=== PATIENT | female | born 1970 | race American Indian/Alaskan Native ===

== ENCOUNTER 2016-11-24 11:33 | Emergency (ER) | payer OTHER ==
[2016-11-24 11:55] VITALS: BP 128/82
--- NOTE | 2016-11-24 18:49 | Emergency Department Report ---
Entered by ALTON RANKIN, acting as scribe for EDWIN WINCHESTER NP. ED General Adult HPI - General Chief complaint: Extremity Injury, Lower Stated complaint: RT LEG PAIN/HIGH BLOOD SUGAR Time Seen by Provider: 11/24/16 13:42 Source: patient Mode of arrival: Ambulatory Limitations: No Limitations - History of Present Illness Initial comments: This is a 46 y/o female, nontoxic, well nourished in appearance, no acute signs of distress with a PMHx of IDDM presents with c/o right arm and toes tingling sensation that began over 6 months ago. Aggravated with nothing and alleviated with nothing. Patient states she hasn't been compliant with Metformin 500 mg medications for 10 months. She notes her blood glucose was elevated to 160. Patient secondary complaint consists of right knee pain that began 3 weeks ago. Patient states she was playing around and someone subsequently fell on her right knee. Rates pain a 9/10 in sverity, which she describes as sharp in quality. Patient stated she wants a refill for metformin in this visit. Patient denies f/u with her PCP due to no insurance but patient stated has insurance currently and will f/u after referred. Patient reports associated left ankle swelling, but he denies fever, chills, chest pain, SOB, BLANTON or dizziness, numbness, and tingling. Patient refused to receive an X-ray of right knee. NKDA. LEIVA Complaint: Medication refill and tingling in extremities Onset/Timin -: week(s) (right knee), month(s) (6 months for right arm and toes tingling/ numbness) Location: upper extremity (right arm), lower extremity (toes) Radiation: non-radiation Severity scale (0 -10): 9 (right knee) Quality: sharp (right knee) Consistency: constant Improves with: none Worsens with: none Associated Symptoms: denies other symptoms, other (tingling of upper and lower extremities and right knee pain). denies: confusion, chest pain, cough, diaphoresis, fever/chills, headaches, malaise, nausea/vomiting, rash, seizure, shortness of breath, syncope, weakness Treatments Prior to Arrival: none - Related Data Previous Rx's Medication Instructions Recorded Last Taken Type Acetaminophen [Tylenol] 500 mg PO Q6HR #14 tablet 03/05/16 Unknown Rx metFORMIN [Glucophage] 500 mg PO BID #60 tablet 03/05/16 Unknown Rx metFORMIN [Glucophage] 500 mg PO BID #20 tablet 11/24/16 Unknown Rx Allergies Allergy/AdvReac Type Severity Reaction Status Date / Time No Known Allergies Allergy Verified 03/05/16 12:00 ED Review of Systems Comment: All other systems reviewed and negative Constitutional: denies: chills, fever Eyes: denies: eye pain, eye discharge, vision change ENT: denies: ear pain, throat pain Respiratory: denies: cough, orthopnea, shortness of breath, SOB with exertion, SOB at rest, stridor, wheezing Cardiovascular: denies: chest pain, palpitations, dyspnea on exertion, orthopnea , edema, syncope Endocrine: no symptoms reported Gastrointestinal: denies: abdominal pain, nausea, vomiting, diarrhea Musculoskeletal: myalgia (right knee pain). denies: back pain, joint swelling, arthralgia Skin: denies: rash, lesions Neurological: paresthesias (toes and right arm). denies: headache, weakness, numbness, confusion, abnormal gait, vertigo ED Past Medical Hx - Past Medical History Hx Diabetes: Yes - Surgical History Additional Surgical History: x 2 - Social History Smoking Status: Current Every Day Smoker Substance Use Type: Alcohol - Medications Home Medications: Home Medications Medication Instructions Recorded Confirmed Last Taken Type Acetaminophen [Tylenol] 500 mg PO Q6HR #14 tablet 03/05/16 Unknown Rx metFORMIN [Glucophage] 500 mg PO BID #60 tablet 03/05/16 Unknown Rx metFORMIN [Glucophage] 500 mg PO BID #20 tablet 11/24/16 Unknown Rx ED Physical Exam - General Limitations: No Limitations General appearance: alert, in no apparent distress - Head Head exam: Present: atraumatic, normocephalic - Eye Eye exam: Present: normal appearance, PERRL, EOMI Pupils: Present: normal accommodation - ENT ENT exam: Present: normal exam, normal orophraynx, mucous membranes moist, TM's normal bilaterally, normal external ear exam - Neck Neck exam: Present: normal inspection, full ROM. Absent: tenderness, meningismus, lymphadenopathy - Respiratory Respiratory exam: Present: normal lung sounds bilaterally. Absent: respiratory distress, wheezes, rales, rhonchi, stridor - Cardiovascular Cardiovascular Exam: Present: regular rate, normal rhythm, normal heart sounds. Absent: bradycardia, tachycardia, irregular rhythm, systolic murmur, diastolic murmur, rubs, gallop - GI/Abdominal GI/Abdominal exam: Present: soft, normal bowel sounds - Rectal Rectal exam: Present: deferred - Extremities Exam Extremities exam: Present: normal inspection, full ROM, normal capillary refill. Absent: tenderness, pedal edema, joint swelling, calf tenderness - Expanded Lower Extremity Exam Right Hip exam: Present: full ROM, tenderness. Absent: swelling, abrasion Upper Leg exam: Present: normal inspection, full ROM. Absent: tenderness, swelling, abrasion, laceration, ecchymosis, deformity, crepidus, dislocation, erythema Knee exam: Present: normal inspection, full ROM, full knee extension. Absent: tenderness, swelling, abrasion, laceration, ecchymosis, deformity, crepidus, dislocation, erythema, effusion, pain w/ pronation/supination, posterior draw sign, pain/laxity with valgus, pain/laxity with varus Lower Leg exam: Present: normal inspection, full ROM. Absent: tenderness, swelling, abrasion, laceration, ecchymosis, deformity, crepidus, dislocation, erythema, palpable cord, Andrea's sign Ankle exam: Present: normal inspection, full ROM. Absent: tenderness, swelling , abrasion, laceration, ecchymosis, deformity, crepidus, dislocation, erythema, anterior draw sign Foot/Toe exam: Present: normal inspection, full ROM. Absent: tenderness, swelling, abrasion, laceration, ecchymosis Neuro vascular tendon exam: Present: no vascular compromise Gait: Positive: observed and normal - Back Exam Back exam: Present: normal inspection, full ROM. Absent: tenderness, CVA tenderness (R), CVA tenderness (L), muscle spasm, paraspinal tenderness, vertebral tenderness, rash noted - Neurological Exam Neurological exam: Present: alert, oriented X3, CN II-XII intact, normal gait, reflexes normal - Psychiatric Psychiatric exam: Present: normal affect, normal mood. Absent: depressed, agitated - Skin Skin exam: Present: warm, dry, intact, normal color. Absent: rash ED Course Vital Signs 11/24/16 11:47 Temperature 98.8 F Pulse Rate 83 Respiratory 20 Rate Blood Pressure 128/82 O2 Sat by Pulse 100 Oximetry - Reevaluation(s) Reevaluation #1: 11/24/16 13:58 Patient is sitting with no signs of distress noted. Reevaluation #2: 11/24/16 13:59 Patient refused further eval of knee pain. Patient stated she does not want x- ray and refused. I instructed patient of my concerns and the importance of a knee x-ray but patient still refused. Stated she only wants a refill of metformin. ED Medical Decision Making - Medical Decision Making Ed course: This is a 46-year-old female that presents peripheral neuropathy and medication refill 1- Patient refused further eval of knee pain. Patient stated she does not want x -ray and refused. I instructed patient of my concerns and the importance of a knee x-ray but patient still refused. Stated she only wants a refill of metformin. 2- patient received metformin 500 mg by mouth twice a day and was instructed to follow up with a primary care doctor in 24 hours to evaluate glucose levels. 3- at time time of discharge, the patient does not seem toxic or ill in appearance. No acute signs of distress noted. Patient agrees to discharge treatment plan of care. No further questions noted by the patient. 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 Prior to obtaining metformin please check your glucose levels. Prescriptions: metFORMIN [Glucophage] 500 mg PO BID #20 tablet Referrals: PAYTON AYALA MD [Primary Care Provider] - 3-5 Days AKILAH MARKS JR, MD [Staff Physician] - 3-5 Days [facility] [Outside] - 3-5 Days [facility] [Outside] - 3-5 Days Forms: Work/School Release Form(ED) This documentation as recorded by the scribMASSIEL fleming JASMINE,accurately reflects the service I personally performed and the decisions made by me,EDWIN WINCHESTER, ZOFIA.
== END 2016-11-24 14:12 | disposition home or self-care (01) ==
LOC: ED 11:33
DX: E13.21 Other specified diabetes mellitus with diabetic nephropathy (principal); G62.9 Polyneuropathy, unspecified; F17.200 Nicotine dependence, unspecified, uncomplicated
CPT/HCPCS: 82962; 99282

== ENCOUNTER 2017-05-01 10:26 | Emergency (ER) | payer OTHER ==
[2017-05-01 11:39] VITALS: BP 152/97
[2017-05-01] MEDS ORDERED: BOOSTRIX IM ONE (14:00)
--- NOTE | 2017-05-01 14:17 | Emergency Department Report ---
HPI - General Chief Complaint: Puncture Wound Time Seen by Provider: 05/01/17 13:19 - HPI HPI: She is a 47-year-old female with a history of diabetes controlled with metformin presents to ED stating that she stepped on a scissors about 2 months ago and never got it looked at. Patient states she wanted to come in and have it looked at today plus she ran out of her metformin for the past 3 months and wonders if she can get her medication refilled. Patient states she does not have a primary care once a referral. She denies any fever/chills/nausea/vomiting this abdominal pain/chest pain/ shortness of breath/dizziness or any other problems ED Past Medical Hx - Past Medical History Hx Diabetes: Yes - Surgical History Additional Surgical History: x 2 - Social History Smoking Status: Current Some Day Smoker Substance Use Type: Alcohol - Medications Home Medications: Home Medications Medication Instructions Recorded Confirmed Last Taken Type Acetaminophen [Tylenol] 500 mg PO Q6HR #14 tablet 03/05/16 Unknown Rx metFORMIN [Glucophage] 500 mg PO BID #60 tablet 03/05/16 Unknown Rx Ibuprofen [Motrin] 600 mg PO Q8H PRN #30 tablet 05/01/17 Unknown Rx metFORMIN [Glucophage] 500 mg PO BID #60 tablet 05/01/17 Unknown Rx ED Review of Systems ROS: Stated complaint: LEFT LEG PAIN Other details as noted in HPI Constitutional: denies: chills, fever Eyes: denies: eye pain, eye discharge, vision change ENT: denies: ear pain, throat pain Respiratory: denies: cough, shortness of breath, wheezing Cardiovascular: denies: chest pain, palpitations Endocrine: no symptoms reported Gastrointestinal: denies: abdominal pain, nausea, diarrhea Genitourinary: denies: urgency, dysuria, discharge Musculoskeletal: denies: back pain, joint swelling, arthralgia Skin: denies: rash, lesions Neurological: denies: headache, weakness, paresthesias Psychiatric: denies: anxiety, depression Hematological/Lymphatic: denies: easy bleeding, easy bruising Physical Exam - Physical Exam Vital Signs: Vital Signs 05/01/17 11:32 Temperature 98 F Pulse Rate 81 Respiratory 18 Rate Blood Pressure 152/97 O2 Sat by Pulse 100 Oximetry Physical Exam: GENERAL: Alert and oriented x3, no apparent distress, Normal Gait, atraumatic. HEAD: Head is normocephalic and a-traumatic. LUNGS: Symetrical with respiration, No wheezing, no rales or crackles, CTAB. HEART: S1, S2 present, regular rate and rhythm without murmur, no rubs, no gallops. Non tender to palpation EXTREMITIES/MUSCULOSKELETAL: No cyanosis, clubbing, rash, lesions or edema. Full ROM bilaterally. UE/LE Pulses 2+ bilaterally. No active puncture wound seen on foot bilaterally. Nontender to palpation bilaterally. NEUROLOGIC: The patient is cooperative with no focal neurologic deficits. SKIN: Warm and dry, No lesions, No ulceration or induration present. ED Course Vital Signs 05/01/17 11:32 Temperature 98 F Pulse Rate 81 Respiratory 18 Rate Blood Pressure 152/97 O2 Sat by Pulse 100 Oximetry ED Medical Decision Making - Medical Decision Making 47-year-old female presents healed old puncture wound and medication refill ED course: Patient received a TD booster ED I discussed the patient I'll give her refill on her metformin and his she needs to follow up with the primary care if physician as referred. Vital signs are normal patient is in no acute respiratory distress. She states she understands instructions and will follow-up as discussed. Critical care attestation.: If time is entered above; I have spent that time in minutes in the direct care of this critically ill patient, excluding procedure time. ED Disposition Clinical Impression: Medication refill Puncture wound of foot excluding toes without complication Qualifiers: Encounter type: initial encounter Laterality: right Qualified Code(s): S91.331A - Puncture wound without foreign body, right foot, initial encounter Disposition: TO HOME OR SELFCARE Is pt being admited?: No Does the pt Need Aspirin: No Condition: Stable Instructions: Puncture Wound (ED) Additional Instructions: Make sure to follow up with the primary care physician as discussed. Take all your medications as you've been prescribed. If you have any worsening symptoms or develop new symptoms please return to ED immediately. Prescriptions: Ibuprofen [Motrin] 600 mg PO Q8H PRN #30 tablet PRN Reason: Pain metFORMIN [Glucophage] 500 mg PO BID #60 tablet Referrals: PRIMARY CARE, [Primary Care Provider] - 3-5 Days [facility] [Outside] - 3-5 Days [facility] [Outside] - 3-5 Days [facility] [Outside] - 3-5 Days [facility] [Outside] - 3-5 Days RAMESH HUSAIN MD [Referring] - 3-5 Days Forms: Accompanied Note, Work/School Release Form(ED) Time of Disposition: 14:42
== END 2017-05-01 15:03 | disposition home or self-care (01) ==
LOC: ED 10:26
DX: S91.331A Puncture wound without foreign body, right foot, initial encounter (principal); E11.9 Type 2 diabetes mellitus without complications; F17.200 Nicotine dependence, unspecified, uncomplicated; W22.8XXA Striking against or struck by other objects, initial encounter; Y93.89 Activity, other specified; Y92.89 Other specified places as the place of occurrence of the external cause; Y99.8 Other external cause status
CPT/HCPCS: 90471; 90715; 99282

== ENCOUNTER 2017-10-01 14:42 | Emergency (ER) | payer SELFPAY ==
[2017-10-01 15:27] VITALS: BP 144/83
--- NOTE | 2017-10-01 18:05 | Emergency Department Report ---
ED General Adult HPI - General Chief complaint: Medical Clearance Stated complaint: PAIN IN RIGHT SHOULDER/BLOOD PRESSURE Time Seen by Provider: 10/01/17 17:00 Source: patient Mode of arrival: Ambulatory Limitations: No Limitations - History of Present Illness Initial comments: Patient is a 47-year-old female who is presenting with heavily but blood sugar. Patient states she's been off of her diabetic medications for approximately 2 months. Patient states whenever she eats her blood sugar rises into the to 300 range. Patient states she has not eaten today for fear that her blood sugar is rising. Patient also states she's had some discomfort in the right upper extremity that she states her pain is 8 out of 10 in severity. Patient states that she does not have a primary care physician at this time despite having insurance. Patient also has not been on any blood pressure medicines either. Patient blood pressure was 150 80 range before arrival. Patient denies any nausea vomiting diarrhea or chest pain shortness of breath fevers chills cough or dysuria at this time. - Related Data Previous Rx's Medication Instructions Recorded Last Taken Type Acetaminophen [Tylenol] 500 mg PO Q6HR #14 tablet 03/05/16 Unknown Rx metFORMIN [Glucophage] 500 mg PO BID #60 tablet 03/05/16 Unknown Rx Amlodipine Besylate [Norvasc] 5 mg PO DAILY #30 tablet 10/01/17 Unknown Rx Ibuprofen [Motrin 600 MG tab] 600 mg PO Q8H PRN #30 tablet 10/01/17 Unknown Rx metFORMIN [Glucophage] 500 mg PO BID #60 tablet 10/01/17 Unknown Rx Allergies Allergy/AdvReac Type Severity Reaction Status Date / Time No Known Allergies Allergy Verified 05/01/17 10:50 ED Review of Systems ROS: Stated complaint: PAIN IN RIGHT SHOULDER/BLOOD PRESSURE Other details as noted in HPI Comment: All other systems reviewed and negative ED Past Medical Hx - Past Medical History Previous Medical History?: Yes Hx Diabetes: Yes - Surgical History Past Surgical History?: Yes Additional Surgical History: x 2 - Social History Smoking Status: Current Every Day Smoker Substance Use Type: Alcohol, Prescribed - Medications Home Medications: Home Medications Medication Instructions Recorded Confirmed Last Taken Type Acetaminophen [Tylenol] 500 mg PO Q6HR #14 tablet 03/05/16 Unknown Rx metFORMIN [Glucophage] 500 mg PO BID #60 tablet 03/05/16 Unknown Rx Amlodipine Besylate [Norvasc] 5 mg PO DAILY #30 tablet 10/01/17 Unknown Rx Ibuprofen [Motrin 600 MG tab] 600 mg PO Q8H PRN #30 tablet 10/01/17 Unknown Rx metFORMIN [Glucophage] 500 mg PO BID #60 tablet 10/01/17 Unknown Rx ED Physical Exam - General Limitations: No Limitations General appearance: alert, in no apparent distress - Head Head exam: Present: atraumatic, normocephalic - Eye Eye exam: Present: normal appearance - ENT ENT exam: Present: mucous membranes moist - Neck Neck exam: Present: normal inspection - Respiratory Respiratory exam: Present: normal lung sounds bilaterally. Absent: respiratory distress - Cardiovascular Cardiovascular Exam: Present: regular rate, normal rhythm. Absent: systolic murmur, diastolic murmur, rubs, gallop - GI/Abdominal GI/Abdominal exam: Present: soft, normal bowel sounds - Extremities Exam Extremities exam: Present: normal inspection - Back Exam Back exam: Present: normal inspection - Neurological Exam Neurological exam: Present: alert, oriented X3 - Psychiatric Psychiatric exam: Present: normal affect, normal mood - Skin Skin exam: Present: warm, dry, intact, normal color. Absent: rash ED Course Vital Signs 10/01/17 15:23 Temperature 98.7 F Pulse Rate 79 Respiratory 19 Rate Blood Pressure 144/83 O2 Sat by Pulse 99 Oximetry ED Medical Decision Making - Lab Data Lab Results 10/01/17 Range/Units 15:28 POC Glucose 152 H (70-105) - Medical Decision Making Be referred to primary care and will be discharged home with refills of her medications. Critical care attestation.: If time is entered above; I have spent that time in minutes in the direct care of this critically ill patient, excluding procedure time. ED Disposition Clinical Impression: Non compliance with medical treatment Disposition: DC-01 TO HOME OR SELFCARE Is pt being admited?: No Does the pt Need Aspirin: No Condition: Stable Instructions: Diabetic Hyperglycemia (ED) Prescriptions: Amlodipine Besylate [Norvasc] 5 mg PO DAILY #30 tablet Ibuprofen [Motrin 600 MG tab] 600 mg PO Q8H PRN #30 tablet PRN Reason: Pain metFORMIN [Glucophage] 500 mg PO BID #60 tablet Referrals: NOEL NAVA MD [Staff Physician] - 3-5 Days
== END 2017-10-01 18:20 | disposition home or self-care (01) ==
LOC: ED 14:42
DX: M25.511 Pain in right shoulder (principal); I10 Essential (primary) hypertension; F17.200 Nicotine dependence, unspecified, uncomplicated; E11.9 Type 2 diabetes mellitus without complications; Z79.899 Other long term (current) drug therapy
CPT/HCPCS: 82962; 99282

== ENCOUNTER 2018-12-05 16:38 | Emergency (ER) | payer SELFPAY ==
--- NOTE | 2018-12-05 16:58 | Emergency Department Report ---
ED General Adult HPI - General Chief complaint: Extremity Problem,Nontraumatic Stated complaint: DIABETIC NO MEDS Time Seen by Provider: 12/05/18 16:50 Source: patient Mode of arrival: Ambulatory Limitations: No Limitations - History of Present Illness Initial comments: Patient is a 48-year-old female up since emergency room for complaints of elevated blood sugar and noncompliance with diabetes medications and burning in her feet and discoloration to her great toenails. Patient states the discoloration started about 3 months ago. Patient states that TURP diabetes medications for 6 months or more. Patient states the burning her feet started about 2 months ago. Patient states this time she is not having any but is intermittent and patient is not sure what to do or take for these symptoms. Patient states she has an appointment in a few weeks with diabetes doctor. Patient denies chest pain or shortness breath. Patient denies dizziness. De nies blurred vision. Patient denies nausea vomiting. -: Sudden Severity scale (0 -10): 0 Quality: burning Consistency: intermittent, now resolved Improves with: rest Worsens with: movement Associated Symptoms: denies: confusion, chest pain, cough, diaphoresis, fever/chills, headaches, loss of appetite, malaise, nausea/vomiting, rash, seizure, shortness of breath, syncope, weakness Treatments Prior to Arrival: none - Related Data Previous Rx's Medication Instructions Recorded Last Taken Type Acetaminophen [Tylenol] 500 mg PO Q6HR #14 tablet 03/05/16 Unknown Rx metFORMIN [Glucophage] 500 mg PO BID #60 tablet 03/05/16 Unknown Rx Amlodipine Besylate [Norvasc] 5 mg PO DAILY #30 tablet 10/01/17 Unknown Rx Ibuprofen [Motrin 600 MG tab] 600 mg PO Q8H PRN #30 tablet 10/01/17 Unknown Rx metFORMIN [Glucophage] 500 mg PO BID 15 Days #30 tablet 12/05/18 Unknown Rx Allergies Allergy/AdvReac Type Severity Reaction Status Date / Time No Known Allergies Allergy Verified 05/01/17 10:50 ED Review of Systems ROS: Stated complaint: DIABETIC NO MEDS Other details as noted in HPI Constitutional: denies: chills, fever Eyes: denies: eye pain, eye discharge, vision change ENT: denies: ear pain, throat pain Respiratory: denies: cough, shortness of breath, wheezing Cardiovascular: denies: chest pain, palpitations Endocrine: no symptoms reported Gastrointestinal: denies: abdominal pain, nausea, diarrhea Genitourinary: denies: urgency, dysuria, discharge Musculoskeletal: denies: back pain, joint swelling, arthralgia Skin: denies: rash, lesions Neurological: denies: headache, weakness, paresthesias Psychiatric: denies: anxiety, depression Hematological/Lymphatic: denies: easy bleeding, easy bruising ED Past Medical Hx - Past Medical History Previous Medical History?: Yes Hx Hypertension: Yes Hx Diabetes: Yes - Surgical History Past Surgical History?: Yes Additional Surgical History: x 2 - Family History Family history: no significant - Social History Smoking Status: Current Every Day Smoker Substance Use Type: Alcohol, Prescribed - Medications Home Medications: Home Medications Medication Instructions Recorded Confirmed Last Taken Type Acetaminophen [Tylenol] 500 mg PO Q6HR #14 tablet 03/05/16 Unknown Rx metFORMIN [Glucophage] 500 mg PO BID #60 tablet 03/05/16 Unknown Rx Amlodipine Besylate [Norvasc] 5 mg PO DAILY #30 tablet 10/01/17 Unknown Rx Ibuprofen [Motrin 600 MG tab] 600 mg PO Q8H PRN #30 tablet 10/01/17 Unknown Rx metFORMIN [Glucophage] 500 mg PO BID 15 Days #30 tablet 12/05/18 Unknown Rx ED Physical Exam - General Limitations: No Limitations General appearance: alert, in no apparent distress - Head Head exam: Present: atraumatic, normocephalic - Eye Eye exam: Present: normal appearance - ENT ENT exam: Present: mucous membranes moist - Neck Neck exam: Present: normal inspection - Respiratory Respiratory exam: Present: normal lung sounds bilaterally. Absent: respiratory distress - Cardiovascular Cardiovascular Exam: Present: regular rate, normal rhythm. Absent: systolic murmur, diastolic murmur, rubs, gallop - GI/Abdominal GI/Abdominal exam: Present: soft, normal bowel sounds - Extremities Exam Extremities exam: Present: normal inspection, full ROM, normal capillary refill, other (bilateral toenail fungus to the great toes). Absent: tenderness, pedal edema, calf tenderness - Back Exam Back exam: Present: normal inspection - Neurological Exam Neurological exam: Present: alert, oriented X3 - Psychiatric Psychiatric exam: Present: normal affect, normal mood - Skin Skin exam: Present: warm, dry, intact, normal color. Absent: rash ED Course Vital Signs 12/05/18 18:00 Pulse Rate 82 Respiratory 16 Rate Blood Pressure 153/84 [Left] O2 Sat by Pulse 98 Oximetry - Reevaluation(s) Reevaluation #1: Discussed all results with patient. Patient is stable for discharge. Patient will be discharged home. Patient agrees to plan of care. Patient given discharge instructions. Patient voiced understanding of discharge instructions. 12/05/18 18:19 ED Medical Decision Making - Lab Data Result diagrams: 12/05/18 17:26 12/05/18 17:26 - Medical Decision Making Patient is a 48-year-old female appears emergency room with complaints of burning in her feet and discoloration of her toenails. Patient's burning is mostly secondary to diabetic neuropathy and patient will be referred to her primary care and claims account manager for management. Patient's discoloration of her great toenails is most like secondary to a fungal infection. Patient will referred to her primary care for management of that. Patient's also found to be hyperglycemic. Patient is a noncompliant diabetic with her meds and diet. Patient given a refill of metformin. Patient's labs were unremarkable except for hyperglycemia. Patient given diabetic diet information. Patient given lots of diabetes education while in the ER. Patient instructed not to stop her medications. Patient referred to a claims account manager and her primary care for management of her diabetes. - Differential Diagnosis dm. nocompliance. dm neuropathy Critical care attestation.: If time is entered above; I have spent that time in minutes in the direct care of this critically ill patient, excluding procedure time. ED Disposition Clinical Impression: Toenail fungus, Noncompliance Diabetes Qualifiers: Diabetes mellitus type: type 2 Diabetes mellitus senior care insulin use: without senior care use Diabetes mellitus complication status: with other specified complication Qualified Code(s): E11.69 - Type 2 diabetes mellitus with other specified complication Diabetic neuropathy Qualifiers: Diabetes mellitus type: type 2 Diabetes mellitus complication detail: with other neurological complication Qualified Code(s): E11.49 - Type 2 diabetes mellitus with other diabetic neurological complication Hypertension Qualifiers: Hypertension type: essential hypertension Qualified Code(s): I10 - Essential (primary) hypertension Disposition: - TO HOME OR SELFCARE Is pt being admited?: No Does the pt Need Aspirin: No Condition: Stable Instructions: How to Check Your Blood Sugar (ED), Diabetic Foot Care (ED), Diabetes Mellitus Type 2 in Adults (ED), Diabetic Neuropathy (ED), Hypertension (ED) Additional Instructions: Patient to follow-up with primary care in 2-3 days. Patient to take Tylenol or ibuprofen when necessary for pain. Patient to follow up with claims account manager in 2-3 days. Patient to eat a diabetic diet. Patient to monitor blood sugars at home. Patient to monitor blood pressure at home. Patient to return to ER if condition worsens. Patient to take meds as directed. Patient to increase water. Patient to rest. Patient to continue all meds. Prescriptions: metFORMIN [Glucophage] 500 mg PO BID 15 Days #30 tablet Referrals: JOURDAN NINO MD [Primary Care Provider] - 3-5 Days Time of Disposition: 18:11
[2018-12-05 17:43] LABS: Hematocrit 35.2 % (30.3-42.9); Hemoglobin 11.8 gm/dl (10.1-14.3); Mean Corpuscular HGB Conc 34 % (30-34); Mean Corpuscular Volume 86 fl (79-97); Platelet Count 320 K/mm3 (140-440); Red Blood Count 4.12 M/mm3 (3.65-5.03)
[2018-12-05 18:01] LABS: Alanine Aminotransferase 9 units/L (7-56); Albumin 4.1 g/dL (3.9-5); BUN/Creatinine Ratio 10; Blood Urea Nitrogen 9 mg/dL (7-17); Calcium 9.1 mg/dL (8.4-10.2); Hemolysis Index 8
[2018-12-05 18:51] VITALS: BP 153/84
== END 2018-12-05 18:52 | disposition home or self-care (01) ==
LOC: ED 16:38
DX: E11.40 Type 2 diabetes mellitus with diabetic neuropathy, unspecified (principal); I10 Essential (primary) hypertension; B35.1 Tinea unguium; F17.200 Nicotine dependence, unspecified, uncomplicated; Z79.4 Long term (current) use of insulin; Z98.890 Other specified postprocedural states; Z79.899 Other long term (current) drug therapy
CPT/HCPCS: 36415; 80053; 82962; 85027; 99283

== ENCOUNTER 2021-06-01 21:31 | Emergency (ER) | payer OTHER ==
[2021-06-02] MEDS ORDERED: SODIUM CHLORIDE 0.9% 1000 ML 1,000 ML IV ONE (05:22)
[2021-06-02] MEDS ORDERED: KETOROLAC 30 MG/1 ML INJ IV ONE (05:22)
[2021-06-02] MEDS ORDERED: ONDANSETRON 4 MG/2 ML INJ IV ONE (05:22)
[2021-06-02] MEDS ORDERED: FAMOTIDINE 20 MG/2 ML INJ IV ONE ×2 (05:23→09:00)
[2021-06-02 06:06] LABS: Basophils % (Auto) 0.2 % (0.0-1.8); Eosinophils # (Auto) 0.1 K/mm3 (0.0-0.4); Eosinophils % (Auto) 0.4 % (0.0-4.3); Hematocrit 37.2 % (30.3-42.9); Hemoglobin 12.1 gm/dl (10.1-14.3); Lymphocytes # (Auto) 2.8 K/mm3 (1.2-5.4); Lymphocytes % (Auto) 21.3 % (13.4-35.0); Mean Corpuscular HGB Conc 33 % (30-34); Mean Corpuscular Volume 87 fl (79-97); Monocytes # (Auto) 0.8 K/mm3 (0.0-0.8); Monocytes % (Auto) 6.1 % (0.0-7.3); Platelet Count 300 K/mm3 (140-440); Red Cell Distribution Width 14.4 % (13.2-15.2)
--- NOTE | 2021-06-02 06:12 | Event Note ---
ED Screening Note Date of service: 06/02/21 Time: 06:11 ED Screening Note: Patient is a 51-year-old -[place] female with a history of hypertension and [id number] diabetes who presents to the ED with complaint of acute onset persistent intermittent nausea and vomiting for the last 2 days, worse in the last 8 hours. Patient states that she has not been able to keep anything down in the last 12 hours. Patient also complains of left shoulder pain persistently for the last 2 weeks. Patient denies chest pain, shortness of breath, dizziness, syncope, diarrhea, abdominal pain, headache, lightheadedness, fall, traumatic injury, diarrhea, dysuria, urine frequency and urgency This initial assessment/diagnostic orders/clinical plan/treatment(s) is/are subject to change based on patients health status, clinical progression and re- assessment by fellow clinical providers in the ED. Further treatment and workup at subsequent clinical providers discretion. Patient/guardian urged not to elope from the ED as their condition may be serious if not clinically assessed and managed. Initial orders include: CBC, CMP, UA, troponin, ekg, chest x-ray
[2021-06-02 06:30] LABS: Alanine Aminotransferase 12 units/L (7-56); Albumin 4.4 g/dL (3.9-5); Blood Urea Nitrogen 13 mg/dL (7-17); Calcium 9.6 mg/dL (8.4-10.2); Hemolysis Index 1
[2021-06-02 06:31] LABS: BUN/Creatinine Ratio 22
--- NOTE | 2021-06-02 07:05 | Emergency Department Report ---
ED General Adult HPI - General Chief complaint: Nausea/Vomiting/Diarrhea Stated complaint: DRUG USE/EMESIS Time Seen by Provider: 06/02/21 06:51 Source: patient, EMS Mode of arrival: Stretcher Limitations: No Limitations - History of Present Illness Initial comments: 51-year-old female with a past medical history of diabetes presents to the ER today with complaints of nausea, vomiting, right shoulder pain and medication refill. Patient states that around 9 PM yesterday she started with nausea and vomiting as well as breaking out in hives, itching and I feel like the right side of her face was swelling. She states that only thing she can recall that she had was shellfish earlier that day but otherwise denies any new foods, medications, soaps, lotions, facial products or any other new contacts. She states that she has eaten shellfish before in the past and has not had that reaction. She denies any associate abdominal pain, shortness of breath, coughing, wheezing chest pain, diarrhea or UTI symptoms. She denies any fever or chills. Patient also complains of right shoulder pain for the past 8 days. She does not recall any particular injury. 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 She states that the pain is worse with movement. She reports no apparent swelling or bruising. She denies similar pain in the past. She also requesting a refill on her Metformin twice a day. She states that she ran out a few days ago. She states that she currently does not have a PCP, but now that she has insurance she is going to work on trying to find a primary care doctor. Complaint: n/v; medication refill;shoulder pain -: week(s), Last night - Related Data Previous Rx's Medication Instructions Recorded Last Taken Type Acetaminophen [Tylenol] 500 mg PO Q6HR #14 tablet 03/05/16 Unknown Rx Amlodipine Besylate [Norvasc] 5 mg PO DAILY #30 tablet 10/01/17 Unknown Rx Ibuprofen [Motrin 600 MG tab] 600 mg PO Q8H PRN #30 tablet 10/01/17 Unknown Rx metFORMIN [Glucophage] 500 mg PO BID 15 Days #30 tablet 12/05/18 Unknown Rx Famotidine [Pepcid] 20 mg PO BID #60 tablet 06/02/21 Unknown Rx Ondansetron [Zofran Odt] 4 mg PO Q8HR #15 tab.rapdis 06/02/21 Unknown Rx cephALEXin [Keflex] 500 mg PO Q8HR #15 cap 06/02/21 Unknown Rx diphenhydrAMINE [Benadryl CAP] 25 mg PO Q6HR PRN #30 capsule 06/02/21 Unknown Rx metFORMIN [Glucophage] 500 mg PO BID #60 tablet 06/02/21 Unknown Rx Allergies Allergy/AdvReac Type Severity Reaction Status Date / Time No Known Allergies Allergy Verified 05/01/17 10:50 ED Review of Systems ROS: Stated complaint: DRUG USE/EMESIS Other details as noted in HPI Comment: All other systems reviewed and negative Constitutional: denies: chills, fever Eyes: denies: eye pain, eye discharge, vision change ENT: denies: ear pain, throat pain Respiratory: denies: cough, shortness of breath, wheezing ED Past Medical Hx - Past Medical History Hx Hypertension: Yes Hx Diabetes: Yes - Surgical History Additional Surgical History: x 2 - Social History Smoking Status: Current Every Day Smoker Substance Use Type: Alcohol, Prescribed - Medications Home Medications: Home Medications Medication Instructions Recorded Confirmed Last Taken Type Acetaminophen [Tylenol] 500 mg PO Q6HR #14 tablet 03/05/16 Unknown Rx Amlodipine Besylate [Norvasc] 5 mg PO DAILY #30 tablet 10/01/17 Unknown Rx Ibuprofen [Motrin 600 MG tab] 600 mg PO Q8H PRN #30 tablet 10/01/17 Unknown Rx metFORMIN [Glucophage] 500 mg PO BID 15 Days #30 tablet 12/05/18 Unknown Rx Famotidine [Pepcid] 20 mg PO BID #60 tablet 06/02/21 Unknown Rx Ondansetron [Zofran Odt] 4 mg PO Q8HR #15 tab.rapdis 06/02/21 Unknown Rx cephALEXin [Keflex] 500 mg PO Q8HR #15 cap 06/02/21 Unknown Rx diphenhydrAMINE [Benadryl CAP] 25 mg PO Q6HR PRN #30 capsule 06/02/21 Unknown Rx metFORMIN [Glucophage] 500 mg PO BID #60 tablet 06/02/21 Unknown Rx ED Physical Exam - General Limitations: No Limitations General appearance: alert, in no apparent distress - Head Head exam: Present: atraumatic, normocephalic, normal inspection - Eye Eye exam: Present: normal appearance, PERRL, EOMI Pupils: Present: normal accommodation - ENT ENT exam: Present: normal exam, mucous membranes moist - Neck Neck exam: Present: normal inspection, full ROM. Absent: meningismus - Respiratory Respiratory exam: Present: normal lung sounds bilaterally. Absent: respiratory distress, wheezes, rales, rhonchi - Cardiovascular Cardiovascular Exam: Present: regular rate, normal rhythm, normal heart sounds - GI/Abdominal GI/Abdominal exam: Present: soft. Absent: distended, tenderness, guarding, rebound - Expanded Upper Extremity Exam Right Shoulder Exam: Present: normal inspection, full ROM (but with some pain ), tenderness (Mild tenderness to palpation noted to the posterior and proximal aspect of the right shoulder peer). Absent: swelling, abrasion, laceration, ecchymosis, deformity, crepidus, dislocation, erythema, tenderness over AC joint Neuro motor exam: Present: wrist extension intact, thumb opposition intact, thumb IP flexion intact, thumb adduction intact, fingers 2-5 abduction intact Neurosensory exam: Present: radial nerve intact, ulnar nerve intact, median nerve intact Vascular: Present: normal capillary refill, radial pulse (Normal). Absent: vascular compromise - Neurological Exam Neurological exam: Present: alert, oriented X3, CN II-XII intact, normal gait - Psychiatric Psychiatric exam: Present: normal affect, normal mood - Skin Skin exam: Present: intact. Absent: rash ED Course Vital Signs 06/01/21 21:51 Pulse Rate 94 H Respiratory 18 Rate Blood Pressure 160/81 [Right] O2 Sat by Pulse 96 Oximetry ED Medical Decision Making - Lab Data Result diagrams: 06/02/21 05:44 06/02/21 05:44 - Medical Decision Making 0710: Patient has been in the ER now for 9 hours prior to me coming on shift and assessing the patient. At the time of my assessment patient states that she felt better after IV fluids, morphine, Zofran and Pepcid which was which was given when patient first arrived. At the time of my exam, there was no apparent signs of hives, or facial swelling, tongue or throat swelling and no extremity swelling. Patient is not in any respiratory distress. She has no stridor or wheezing on exam. She appears well. She is not toxic. She is not ill- appearing. Abdomen soft and nontender. Labs reviewed --CBC showed mild elevated white count at 13, but otherwise unremarkable. CMP unremarkable. Urinalysis is pending. 0810: Urinalysis reviewed, concern for possible UTI. Patient still well- appearing, nontoxic and not in any acute distress. She has been observed, sitting in recliner comfortably and talking on the phone. Again no obvious signs of an allergic reaction on exam but given her history she'll be started on Benadryl and Pepcid. Also given her history of diabetes we'll hold off on any steroids. Patient also be treated for UTI. Patient will be given referral information to local primary care doctor. Her vital signs are stable. Patient expressed understanding for instructions and agree with plan. Patient stable at time of discharge Critical care attestation.: If time is entered above; I have spent that time in minutes in the direct care of this critically ill patient, excluding procedure time. ED Disposition Clinical Impression: Nausea and vomiting, Allergic reaction, UTI (urinary tract infection), Right shoulder pain Disposition: 01 HOME / SELF CARE / HOMELESS Is pt being admited?: No Does the pt Need Aspirin: No Condition: Stable Instructions: Allergies, Adult, [id number], Nausea and Vomiting, Adult, E asy-to-Read, Urinary Tract Infection, Adult, [id number] Additional Instructions: I recommend that you take the Zofran as prescribed help with nausea and vomiting. Take the Benadryl and the Pepcid, as you may have possibly had a allergic reaction. The allergic reaction could have been from the shellfish you eat earlier yesterday. You may want to consider seeing an reinsurance clerk or log hauler or your primary care doctor for allergy testing. Given your history of diabetes we will hold off on prescribing any steroids for allergic reaction. Take the keflex as prescribed to help with your UTI. Drink lots of fluids. Return to the ER if your symptoms worsens in any way. Prescriptions: diphenhydrAMINE [Benadryl CAP] 25 mg PO Q6HR PRN #30 capsule PRN Reason: itching/hives metFORMIN [Glucophage] 500 mg PO BID #60 tablet cephALEXin [Keflex] 500 mg PO Q8HR #15 cap Famotidine [Pepcid] 20 mg PO BID #60 tablet Ondansetron [Zofran Odt] 4 mg PO Q8HR #15 tab.rapdis Referrals: ИВАН SHANNON MD [Staff Physician] - 3-5 Days Forms: Work/School Release Form(ED) Time of Disposition: 08:01
[2021-06-02 07:42] LABS: Bilirubin,Urine NEG (Negative); Blood,Urine SM (Negative); Color,Urine Yellow (Yellow); Protein,Urine <15 mg/dL mg/dL (Negative); Urobilinogen,Urine < 2.0 mg/dL (<2.0)
[2021-06-02] MEDS ORDERED: KETOROLAC 30 MG/1 ML INJ ONE (08:39)
[2021-06-02 09:45] VITALS: BP 157/92
== END 2021-06-02 09:46 | disposition home or self-care (01) ==
LOC: ED 21:31
DX: T78.40XA Allergy, unspecified, initial encounter (principal); N39.0 Urinary tract infection, site not specified; M25.511 Pain in right shoulder; I10 Essential (primary) hypertension; E11.9 Type 2 diabetes mellitus without complications; F17.200 Nicotine dependence, unspecified, uncomplicated; Z72.89 Other problems related to lifestyle; Z79.899 Other long term (current) drug therapy; X58.XXXA Exposure to other specified factors, initial encounter
CPT/HCPCS: 36415; 80053; 81001; 83690; 84484; 85025; 87086; 96361; 96374; 96375; 99284; J1885; J3490